=== PATIENT | male | born 1950 ===

== ENCOUNTER 2023-06-25 10:53 | Observation (INO) ==
[2023-06-25] MEDS: LACTATED RINGERS 1,000 ML IV ONE (11:41)
[2023-06-25] MEDS: 0.9 % SODIUM CHLORIDE 250 ML IV SCH (11:42)
[2023-06-25 11:54] LABS: Basophils # (Auto) 0.02 K/mcL (0.00-0.30); Basophils % (Auto) 0.2 % (0.0-2.0); Eosinophils # (Auto) 0.17 K/mcL (0.00-0.70); Eosinophils % (Auto) 1.7 % (0.0-7.0); Hematocrit 45.3 % (40.1-51.0); Hemoglobin 14.7 g/dL (13.7-17.5); Lymphocytes # (Auto) 1.98 K/mcL (1.50-4.80); Lymphocytes % (Auto) 19.9 % (15.5-49.0); Mean Cell Volume 92.1 fL (80.0-100.0); Mean Corpuscular HGB Conc 32.5 g/dL (31.0-36.0); Neutrophils % (Auto) 70.9 % (38.0-78.0); Platelet Count 217 K/mcL (140-440); RBC 4.92 M/mcL (4.63-6.08); Red Cell Distribution Width 13.1 % (11.5-14.5)
[2023-06-25 12:17] LABS: ALT/SGPT 5 U/L (<40); AST/SGOT 12 U/L (<40); Albumin 3.8 gm/dL (3.2-5.2); Albumin/Globulin Ratio 1.6 (1.0-2.3); Alkaline Phosphatase 89 U/L (39-117); Blood Urea Nitrogen 19 mg/dL (8-23); Calcium 9.3 mg/dL (8.6-10.4); Carbon Dioxide 23 mmol/L (22-30); Chloride 106 mmol/L (96-108); Globulin 2.4 gm/dL (2.2-3.7); Glomerular Filtration Rate 89; Glucose 128 mg/dL (70-105)
[2023-06-25] MEDS ORDERED: ONDANSETRON 4 MG/2 ML VIAL IV PRN (15:43)
[2023-06-25 15:57] LABS: Appearance,Urine Cloudy (Clear); Bacteria,Urine MANY /hpf (0); Bilirubin,Urine Negative (Negative); Color,Urine Amber; Culture Indicated,Urine Yes; Glucose,Urine (UA) 500 mg/dL (Negative); Ketones,Urine Negative (Negative); Leukocyte Esterase,Urine Trace /uL (Negative); Mucus,Urine MANY /hpf; Nitrate,Urine Negative (Negative); Protein,Urine 30 mg/dL (Negative); Urine Blood Large ery/mcL (Negative); Urine RBC 94 /hpf (0-3); Urine Squamous Epithelial Cell 0 /hpf (0-4); Urine WBC > 182 /hpf (0-4); Urobilinogen,Urine Normal
[2023-06-25 16:04] LABS: Basophils # (Auto) 0.02 K/mcL (0.00-0.30); Basophils % (Auto) 0.2 % (0.0-2.0); Eosinophils # (Auto) 0.07 K/mcL (0.00-0.70); Eosinophils % (Auto) 0.8 % (0.0-7.0); Hemoglobin 12.8 g/dL (13.7-17.5); Lymphocytes # (Auto) 1.97 K/mcL (1.50-4.80); Lymphocytes % (Auto) 22.1 % (15.5-49.0); Mean Cell Volume 90.3 fL (80.0-100.0); Mean Corpuscular HGB Conc 32.8 g/dL (31.0-36.0); Mean Platelet Volume 9.1 fL (8.8-12.5); Monocytes # (Auto) 0.54 K/mcL (0.10-0.90); Neutrophils % (Auto) 70.8 % (38.0-78.0); Platelet Count 199 K/mcL (140-440); RBC 4.32 M/mcL (4.63-6.08); Red Cell Distribution Width 13.2 % (11.5-14.5); WBC 8.9 K/mcL (4.5-11.0)
[2023-06-25] MEDS: 0.9 % SODIUM CHLORIDE 1,000 ML IV SCH (17:08)
[2023-06-25] MEDS: TRANEXAMIC ACID 1,000 MG/10 ML VIAL IV ONE ×2 (17:29→22:30)
[2023-06-25] MEDS ORDERED: DEXTROSE 50% 50 ML VIAL IV PRN ×2 (20:42→21:20)
[2023-06-25] MEDS ORDERED: DEXTROSE 31 GM ORAL.SUSP PO PRN ×2 (20:42→21:20)
[2023-06-25 21:39] LABS: Basophils # (Auto) 0.03 K/mcL (0.00-0.30); Basophils % (Auto) 0.3 % (0.0-2.0); Eosinophils # (Auto) 0.07 K/mcL (0.00-0.70); Eosinophils % (Auto) 0.8 % (0.0-7.0); Hemoglobin 11.2 g/dL (13.7-17.5); Lymphocytes # (Auto) 2.15 K/mcL (1.50-4.80); Lymphocytes % (Auto) 23.8 % (15.5-49.0); Mean Cell Volume 91.9 fL (80.0-100.0); Mean Corpuscular HGB Conc 32.9 g/dL (31.0-36.0); Mean Platelet Volume 8.8 fL (8.8-12.5); Monocytes # (Auto) 0.65 K/mcL (0.10-0.90); Monocytes % (Auto) 7.2 % (1.0-12.0); Neutrophils % (Auto) 67.7 % (38.0-78.0); Platelet Count 186 K/mcL (140-440); Red Cell Distribution Width 13.1 % (11.5-14.5); WBC 9.1 K/mcL (4.5-11.0)
[2023-06-25] MEDS: 0.9 % SODIUM CHLORIDE 10 ML SYRINGE IV SCH (21:55)
[2023-06-25] MEDS: GABAPENTIN 300 MG CAPSULE PO SCH (22:00)
[2023-06-25] MEDS: DOCUSATE SODIUM 100 MG CAPSULE PO SCH (22:02)
[2023-06-25] MEDS: SENNOSIDES 1 TABLET PO SCH (22:03)
[2023-06-26] MEDS: TRANEXAMIC ACID 1,000 MG/10 ML VIAL IV ONE (00:21)
[2023-06-26] MEDS: TRANEXAMIC ACID 1,000 MG/10 ML VIAL ONE (00:22)
[2023-06-26] MEDS: INSULIN LISPRO 1 UNIT/0.01 ML UNIT SQ SCH ×2 (00:23→00:33)
[2023-06-26] MEDS: 0.9 % SODIUM CHLORIDE 1,000 ML IV ONE (03:29)
[2023-06-26 04:01] LABS: Hematocrit 29.5 % (40.1-51.0); Hemoglobin 9.6 g/dL (13.7-17.5)
[2023-06-26] MEDS: 0.9 % SODIUM CHLORIDE 250 ML IV SCH (05:27)
[2023-06-26] MEDS: PANTOPRAZOLE 40 MG TABLET PO SCH (07:18)
[2023-06-26] MEDS: metFORMIN 500 MG TABLET PO SCH (07:18)
[2023-06-26] MEDS: amLODIPine 5 MG TABLET PO SCH (07:41)
[2023-06-26] MEDS: DONEPEZIL 10 MG TABLET PO SCH (08:09)
[2023-06-26] MEDS ORDERED: LOSARTAN 25 MG TABLET PO SCH (09:00)
[2023-06-26] MEDS ORDERED: CARBIDOPA/LEVODOPA 25/100 TABLET PO SCH (17:00)
[2023-06-26] MEDS ORDERED: TAMSULOSIN 0.4 MG CAPSULE PO SCH (17:00)
== END 2023-06-26 09:02 | disposition short-term general hospital (02) ==
LOC: ED 10:53 → MEDSUR 10:53
PROVIDERS: ADMIT Family Medicine Adult Medicine; ATTEND Family Medicine Adult Medicine